=== PATIENT | male | born 1970 ===

== ENCOUNTER 2022-05-19 16:14 | Emergency (ER) | payer SELFPAY ==
[2022-05-19] MEDS ORDERED: Iopamidol 612 MG/ML 100 ML Bottle IVPUSH ONE (16:52)
[2022-05-19] MEDS ORDERED: HYDROmorphone 0.5 MG/0.5 ML Syringe IVPUSH ONE (17:18)
== END 2022-05-19 18:04 | disposition home or self-care (01) ==
LOC: DL.ED 16:14
DX: S22.32XA Fracture of one rib, left side, initial encounter for closed fracture (principal); S20.212A Contusion of left front wall of thorax, initial encounter; W01.0XXA Fall on same level from slipping, tripping and stumbling without subsequent striking against object, initial encounter
CPT/HCPCS: 74177; 96374; 99284; J1170